=== PATIENT | male | born 1985 | race Hispanic/Latino ===

== ENCOUNTER 2018-09-06 10:26 | Emergency (ER) | payer OTHER, BC ==
[2018-09-06 10:34] VITALS: TEMP 98.1
[2018-09-06 10:36] VITALS: BMI 23.7
[2018-09-06] MEDS ORDERED: TDAP Vaccine 0.5 mL Syr IM ONE (10:59)
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
--- NOTE | 2018-09-06 11:43 | RAD ---
Date of service: 09/06/2018 PROCEDURE: Radiographs of the right elbow. HISTORY: trauma r/o fracture COMPARISON: No prior. FINDINGS: BONES: Bone alignment and mineralization are normal. There is no acute displaced fracture or bone destruction. JOINTS: Normal. SOFT TISSUES: Normal. JOINT EFFUSION: None. OTHER FINDINGS: None. IMPRESSION: No acute fracture or dislocation.
--- NOTE | 2018-09-06 11:43 | RAD ---
Date of service: 09/06/2018 PROCEDURE: Radiographs of the right hand HISTORY: trauma r/o fracture COMPARISON: None. FINDINGS: BONES: Bone alignment and mineralization are normal. There is no acute displaced fracture or bone destruction. JOINTS: The joint spaces are preserved. SOFT TISSUES: Normal. OTHER FINDINGS: None. IMPRESSION: No acute displaced fracture or dislocation.
[2018-09-06 12:50] VITALS: BP 116/71; PULSE 85; RESP 16; O2SAT 96
== END 2018-09-06 12:49 | disposition home or self-care (01) ==
LOC: ED 10:26
DX: S40.811A Abrasion of right upper arm, initial encounter (principal); S50.01XA Contusion of right elbow, initial encounter; W01.0XXA Fall on same level from slipping, tripping and stumbling without subsequent striking against object, initial encounter; Y92.89 Other specified places as the place of occurrence of the external cause; Y99.8 Other external cause status; Z23 Encounter for immunization